=== PATIENT | female | born 1965 | race Caucasian/White ===

== ENCOUNTER 2017-05-21 09:04 | Emergency (ER) | payer SELFPAY ==
[~2017-05-21] VITALS: Ht 167.6 cm; Wt 99.8 kg
[2017-05-21 10:25] VITALS: BP 144/85
[2017-05-21] MEDS ORDERED: HYDROmorphone 2 MG/ML VIAL IM ONE (10:30)
[2017-05-21] MEDS ORDERED: diazePAM 5 MG TABLET PO ONE (10:30)
[2017-05-21] MEDS ORDERED: HYDR-971 PO (10:36)
[2017-05-21] MEDS ORDERED: CYCL10TA2 PO (10:36)
--- NOTE | 2017-05-21 10:36 | PHYS DOC ---
Past Medical History Past Medical History: No Pertinent History Past Surgical History: Tubal ligation Alcohol Use: None Drug Use: None Adult General Chief Complaint Chief Complaint: BACK PAIN - NO INJURY HPI HPI Patient is a 51 year old female who presents with moderate left low back pain nonradiating in nature that began yesterday. Patient denies any known trauma. Denies any loss of bowel bladder function. Denies any numbness and tingling to bilateral lower extremities. She states she's had similar back pain 1 year ago and was seen in the hospital where she was given Dilaudid and "come down pill" and the pain was gone for 1-1/2 years. Patient states the pain is worse when she is sitting. Patient is tearful. Review of Systems Review of Systems Constitutional: Denies fever or chills [] GI: Denies abdominal pain, nausea, vomiting, bloody stools or diarrhea [] : Denies dysuria or hematuria [] Musculoskeletal: Low back pain Integument: Denies rash or skin lesions [] Neurologic: Denies headache, focal weakness or sensory changes [] Allergies Allergies Allergies Coded Allergies Type Severity Reaction Last Updated Verified No Known Drug Allergies 11/14/15 No Physical Exam Physical Exam Constitutional: Well developed, well nourished, no acute distress, non-toxic appearance. [] Abdomen: Bowel sounds normal, soft, no tenderness, no masses, no pulsatile masses. [] Skin: Warm, dry, no erythema, no rash. [] Back: Moderate tenderness on palpation of the left lumbar spine, no midline lumbar spine tenderness, no CVA tenderness. [] Extremities: No tenderness, no cyanosis, no clubbing, ROM intact, no edema. [] Neurologic: Alert and oriented X 3, normal motor function, normal sensory function, no focal deficits noted. [] Psychologic: Affect normal, judgement normal, mood normal. [] EKG EKG [] Radiology/Procedures Radiology/Procedures [] Course & Med Decision Making Course & Med Decision Making Pertinent Labs and Imaging studies reviewed. (See chart for details) This is a 51-year-old female patient presenting today with low back pain that began yesterday. No known injury. Patient was given pain relief in the ED and discharged. She is to follow-up with her PCP next week. She has no cauda equina syndrome symptoms. Dragon Disclaimer Dragon Disclaimer This electronic medical record was generated, in whole or in part, using a voice recognition dictation system. Departure Departure Impression: Primary Impression: Low back pain Disposition: HOME, SELF-CARE Condition: STABLE Referrals: NO PCP (PCP) follow up with your doctor this week Patient Instructions: Back Pain, Adult Additional Instructions: You were seen for low back pain. Please follow-up with your doctor as soon as you can. You can apply heat to the affected area. Return to the emergency room if symptoms worsen. Scripts Cyclobenzaprine Hcl (CYCLOBENZAPRINE HCL) 10 Mg Tablet 1 TAB PO TID, #30 TAB Prov: YAZAN LOPEZ APRN 05/21/17 Hydrocodone/Apap 5-325 (NORCO 5-325 TABLET) 1 Each Tablet 1 TAB PO Q4-6HRS, #10 TAB Prov: YAZAN LOPEZ APRN 05/21/17 Problem Qualifiers Primary Impression: Low back pain Chronicity: acute Back pain laterality: bilateral Sciatica presence: without sciatica Qualified Codes: M54.5 - Low back pain YAZAN LOPEZ APRN May 21, 2017 10:36
== END 2017-05-21 10:56 | disposition home or self-care (01) ==
LOC: ER 09:04
DX: M54.5 Low back pain (principal)
CPT/HCPCS: 96372; 99283; J1170

== ENCOUNTER 2018-05-22 09:32 | Emergency (ER) | payer OTHER ==
[~2018-05-22] VITALS: Ht 162.6 cm; Wt 99.8 kg
[~2018-05-22 09:32] MED LIST: CYCL10TA2 PO; HYDR-971 PO
[2018-05-22] MEDS ORDERED: oxyCODONE/APAP 5/325 1 TAB TABLET PO ONE (10:45)
--- NOTE | 2018-05-22 10:45 | PHYS DOC ---
Past Medical History Past Medical History: Depression, Other Additional Past Medical Histor: CHRONIC BACK PAIN Past Surgical History: Tubal ligation Additional Past Surgical Histo: lt orthoscopic knee, back Alcohol Use: None Drug Use: None Adult General Chief Complaint Chief Complaint: MECHANICAL FALL HPI HPI Patient is a 52 year old female with history of chronic right shoulder pain who presents with right shoulder/forearm injury after slipping today. Patient states she fell pinning her right arm behind her shoulder. Patient reports right anterior lateral deltoid pain, tenderness with pain radiating to her neck. Denies her head, headache, loss of consciousness or posterior neck pain. Patient is not on antiplatelet or anticoagulation therapy. She also reports distal right forearm pain. Denies wrist or elbow pain or tenderness. Patient is right-handed. Injury occurred just prior to ED arrival. Patient is followed by Dr. Ashtyn Alvarez regarding her R shoulder [.] Review of Systems Review of Systems ROS as per HPI] All other systems were reviewed and found to be within normal limits, except as documented in this note. Current Medications Current Medications Current Medications Medications (Trade) Dose Ordered Sig/Josefa Start Time Stop Time Status Last Admin Dose Admin Oxycodone/ Acetaminophen (Percocet 5/325) 1 tab 1X ONCE 05/22/18 10:45 05/22/18 10:46 DC 05/22/18 10:49 1 TAB Allergies Allergies Allergies Coded Allergies Type Severity Reaction Last Updated Verified No Known Drug Allergies 11/14/15 No Physical Exam Physical Exam Constitutional: Well developed, well nourished, no acute distress, non-toxic appearance. [] HENT: Normocephalic, atraumatic, bilateral external ears normal, oropharynx moist, no oral exudates, nose normal. [] Eyes: PERRLA, EOMI, conjunctiva normal, no discharge. [] Neck: Normal range of motion, no midline tenderness. [] Extremities: Shoulder, no bony tenderness, soft tissue tenderness over right anterior lateral shoulder, no bruising deformity or swelling. An with range of motion. Right elbow, right wrist. No deformity swelling tenderness or bruising. Right forearm, distal forearm swelling over extensor service. No bruising deformity or erythema. [] Neurologic: Alert and oriented X 3, and upper extremity, no motor weakness or loss of sensation.. [] Psychologic: Affect normal, judgement normal, mood normal. [] Current Patient Data Vital Signs Vital Signs Date Time Temp Pulse Resp B/P (MAP) Pulse Ox O2 Delivery O2 Flow Rate FiO2 05/22/18 10:49 18 Room Air 05/22/18 09:55 97.8 79 146/86 (106) 96 97.8 EKG EKG [] Radiology/Procedures Radiology/Procedures [XR R shoulder/forearm:no acute injuries identified on imaging studies per radiology reports.] Course & Med Decision Making Course & Med Decision Making Pertinent Labs and Imaging studies reviewed. (See chart for details) [Soft tissue injury, right shoulder and forearm pain, soft tissue tenderness. no evidence of fracture dislocation. Recommend supportive care with PCP follow- up. Return precautions reviewed..] Dragon Disclaimer Dragon Disclaimer This electronic medical record was generated, in whole or in part, using a voice recognition dictation system. Departure Departure Impression: Primary Impression: Right shoulder injury Additional Impression: Right forearm injury Disposition: HOME, SELF-CARE Condition: GOOD Referrals: UNKNOWN PCP NAME (PCP) Patient Instructions: Joint Sprain Additional Instructions: You were evaluated in [facility] emergency department for right shoulder and forearm injury. X-rays were performed which did not show evidence of fracture dislocation. Please wear sling for the next 2-3 days and apply ice to affected areas. Take ibuprofen for pain and tramadol as needed for additional relief. Follow-up with your PCP or orthopedic physician for reevaluation in the next 5- 7 days. Scripts Tramadol Hcl (TRAMADOL HCL) 50 Mg Tablet 50 MG PO Q6H PRN for PAIN for 3 Days, #15 TAB 0 Refills Prov: ADDIE MOREL DO 05/22/18 Problem Qualifiers ADDIE MOREL DO May 22, 2018 10:45
--- NOTE | 2018-05-22 11:00 | RAD ---
Right shoulder, 2 views, 05/22/2018: HISTORY: Fall No acute fracture or dislocation is identified. There is moderate degenerative change at the AC joint. A small calcification along the lateral margin of the acromion process is probably tendinous or perhaps related to old trauma. IMPRESSION: No acute bony abnormality is detected. Electronically signed by: Goldy Weathers MD (05/22/2018 10:57 AM) [facility]
--- NOTE | 2018-05-22 11:01 | RAD ---
Right forearm, 2 views, 05/22/2018: HISTORY: Fall, pain No recent fracture is identified. There is mild spurring at the elbow. IMPRESSION: No acute bony abnormality is detected. Electronically signed by: Goldy Weathers MD (05/22/2018 10:58 AM) [facility]
[2018-05-22] MEDS ORDERED: TRAM50TA PO (11:21)
== END 2018-05-22 11:36 | disposition home or self-care (01) ==
LOC: ER 09:32
DX: S49.91XA Unspecified injury of right shoulder and upper arm, initial encounter (principal); S59.911A Unspecified injury of right forearm, initial encounter; G89.29 Other chronic pain; M54.2 Cervicalgia; W01.0XXA Fall on same level from slipping, tripping and stumbling without subsequent striking against object, initial encounter; Y93.89 Activity, other specified; Y92.89 Other specified places as the place of occurrence of the external cause; Y99.8 Other external cause status
CPT/HCPCS: 73030; 73090; 99284